=== PATIENT | male | born 2000 | race Hispanic/Latino ===

== ENCOUNTER 2025-09-03 09:19 | Outpatient (CLI) | payer OTHER | END 2025-09-03 09:20 | disposition home or self-care (01) | LOC: CSHSLEEP 09:19 | PROVIDERS: ATTEND Nurse Practitioner Acute Care | DX: G47.33 Obstructive sleep apnea (adult) (pediatric) (principal); G47.9 Sleep disorder, unspecified; R53.83 Other fatigue; G25.89 Other specified extrapyramidal and movement disorders; R51.9 Headache, unspecified; R41.89 Other symptoms and signs involving cognitive functions and awareness; R06.83 Snoring | CPT/HCPCS: 95810 ==